=== PATIENT | female | born 1955 | race Caucasian/White ===

== ENCOUNTER 2017-01-21 12:42 | Emergency (ER) | payer MEDICAID ==
[~2017-01-21] VITALS: Ht 154.9 cm; Wt 56.0 kg
[~2017-01-21 12:42] MED LIST: AMOXICILLIN
[2017-01-21] MEDS ORDERED: KETOROLAC 60MG/2ML VIAL IM ONE (13:30)
[2017-01-21] MEDS ORDERED: MORPHINE SULFATE 10 MG/ML CPJ IM ONE (13:30)
[2017-01-21 14:21] LABS: CLARITY URINE CLEAR (CLEAR); COLOR URINE YELLOW (YELLOW); GLUCOSE URINE NEGATIVE (NEGATIVE); KETONES URINE NEGATIVE (NEGATIVE); LEUKOCYTE ESTERASE URINE NEGATIVE (NEGATIVE); NITRITE URINE NEGATIVE (NEGATIVE); OCCULT BLOOD URINE 2+ (NEGATIVE); PROTEIN URINE NEGATIVE (NEGATIVE); SPECIFIC GRAVITY URINE 1.031 (1.005-1.030)
[2017-01-21 16:51] VITALS: BP 105/56
== END 2017-01-21 16:57 | disposition home or self-care (01) ==
LOC: ER 13:48
DX: G89.29 Other chronic pain (principal); M54.89 Other dorsalgia; H92.02 Otalgia, left ear; M19.90 Unspecified osteoarthritis, unspecified site
CPT/HCPCS: 72100; 74176; 81001; 96372; 99285; J1885; J2270; Z7610

== ENCOUNTER 2020-01-21 15:34 | Emergency (ER) | payer MEDICAID ==
[~2020-01-21] VITALS: Ht 154.9 cm; Wt 54.0 kg
[2020-01-21 16:43] LABS: BASOPHILS % 0.7 % (0.0-2.0); CHLORIDE 107 mEq/L (98-107); EOSINOPHILS % 0.7 % (0.0-5.0); HEMATOCRIT. 37.9 % (36.0-48.0); HEMOGLOBIN. 12.7 g/dL (12.0-16.0); LYMPHOCYTES % 30.2 % (20.0-50.0); MEAN CORPUSCULAR HEMOGLOBIN 29.6 pg (28.0-32.0); MEAN CORPUSCULAR VOLUME 88.2 fL (81.0-99.0); MEAN PLATELET VOLUME 9.2 fl (7.4-10.4); MONOCYTES % 4.8 % (2.0-8.0); NEUTROPHILS % 63.6 % (40.0-76.0); PLATELET 234 x1000/uL (130-400); RED CELL DISTRIBUTION WIDTH 14.3 % (11.6-14.6)
[2020-01-21] MEDS ORDERED: KETOROLAC 30MG/ML VIAL IM ONE (18:15)
[2020-01-21] MEDS ORDERED: DEXAMETHASONE 4MG TABLET PO ONE (18:15)
[2020-01-21] MEDS ORDERED: ACETAMINOPHEN 325MG TABLET PO ONE (18:15)
[2020-01-21] MEDS ORDERED: METHOCARBAMOL 500MG TABLET PO ONE (18:15)
[2020-01-21] MEDS ORDERED: LIDOCAINE 5% PATCH TOP SCH (18:30)
[2020-01-21] MEDS ORDERED: VANCOMYCIN 1 G PREMIX 200 ML IV SCH (19:45)
[2020-01-21] MEDS ORDERED: TETANUS, DIPHTHERIA, PERTUSSIS VAC/PF 0.5ML (>7YR OLD) IM ONE (19:45)
[2020-01-21] MEDS ORDERED: CLINDAMYCIN 600 MG in DEXTROSE 5% WATER 50 ML IV ONE (21:00)
[2020-01-21] MEDS: CLINDAMYCIN 600MG PREMIX 50 ML IV SCH ×2 (21:31→21:46)
[2020-01-22 07:40] VITALS: BP 124/76
[2020-01-22] MEDS ORDERED: CLINDAMYCIN 600 MG in DEXTROSE 5% WATER 50 ML IV SCH (09:00)
== END 2020-01-22 08:45 | disposition home or self-care (01) ==
LOC: ER 15:34
DX: S60.945A Unspecified superficial injury of left ring finger, initial encounter (principal); I96 Gangrene, not elsewhere classified; R07.89 Other chest pain; M54.2 Cervicalgia; M79.10 Myalgia, unspecified site; I10 Essential (primary) hypertension; Z98.890 Other specified postprocedural states; X58.XXXA Exposure to other specified factors, initial encounter; Y93.89 Activity, other specified; Y92.89 Other specified places as the place of occurrence of the external cause; Y99.8 Other external cause status
CPT/HCPCS: 36415; 71045; 72125; 73120; 80053; 83880; 84484; 85025; 86140; 87040; 90471; 90715; 93005; 96365; 96372; 99285; J1885; J3490; J8540; J7060

== ENCOUNTER 2021-01-20 06:22 | Emergency (ER) | payer MEDICAID, OTHER ==
[~2021-01-20] VITALS: Ht 157.5 cm; Wt 57.0 kg
[2021-01-20] MEDS ORDERED: KETOROLAC 60MG/2ML VIAL IM ONE (07:15)
[2021-01-20] MEDS ORDERED: IBUP-2029 MT (08:32)
[2021-01-20] MEDS ORDERED: CYCL10TA7 MT (08:32)
[2021-01-20 08:50] VITALS: BP 144/78
== END 2021-01-20 08:52 | disposition home or self-care (01) ==
LOC: ER 06:27
DX: M54.40 Lumbago with sciatica, unspecified side (principal); Z96.659 Presence of unspecified artificial knee joint; Z98.890 Other specified postprocedural states
CPT/HCPCS: 93971; 96372; 99284; J1885

== ENCOUNTER 2023-02-22 10:32 | Emergency (ER) | payer MEDICARE, OTHER ==
[~2023-02-22] VITALS: Ht 162.6 cm; Wt 59.0 kg
[~2023-02-22 10:32] MED LIST changes: +CYCL10TA21 MT; +IBUP-2029 MT
[2023-02-22 10:38] VITALS: BP 135/57; PULSE 73; RESP 18; TEMP 97.8; O2SAT 100
[2023-02-22 12:28] LABS: BASOPHILS % 0.6 % (0.0-2.0); EOSINOPHILS % 0.7 % (0.0-5.0); HEMATOCRIT. 37.2 % (36.0-48.0); HEMOGLOBIN. 13.3 g/dL (12.0-16.0); MEAN CORPUSCULAR HEMOGLOBIN 31.5 pg (28.0-32.0); MEAN CORPUSCULAR HGB CONC 35.8 g/dL (31.0-37.0); MEAN CORPUSCULAR VOLUME 87.9 fL (81.0-99.0); MEAN PLATELET VOLUME 9.3 fl (7.4-10.4); MONOCYTES % 5.2 % (2.0-8.0); NEUTROPHILS % 68.5 % (40.0-76.0); PLATELET 199 x1000/uL (130-400); RED BLOOD CELL COUNT 4.23 mill/uL (4.2-5.4); RED CELL DISTRIBUTION WIDTH 13.8 % (11.6-14.6); WHITE BLOOD COUNT 6.2 x1000/uL (4.5-11.0)
[2023-02-22 12:51] LABS: ALANINE AMINOTRANSFERASE 16 IU/L (10-49); ALBUMIN 4.5 g/dL (3.2-4.8); ASPARTATE AMINOTRANSFERASE 19 IU/L (<34); BILIRUBIN TOTAL 1.2 mg/dL (0.1-1.0); CALCIUM 9.6 mg/dL (8.7-10.4); CARBON DIOXIDE 32 mEq/L (21-32); CHLORIDE 106 mEq/L (98-107); CREATININE 0.7 mg/dL (0.6-1.0); GLUCOSE 106 mg/dL (70-105); POTASSIUM 3.8 mEq/L (3.5-5.1); PROTEIN TOTAL 7.2 g/dL (6.0-8.3); SODIUM 141 mEq/L (136-145); UREA NITROGEN BLOOD 14 mg/dL (9-23)
[2023-02-22] MEDS ORDERED: KETOROLAC 60MG/2ML VIAL IM ONE (13:15)
[2023-02-22 13:17] LABS: CLARITY URINE CLOUDY (CLEAR); COLOR URINE YELLOW (YELLOW); GLUCOSE URINE NEGATIVE (NEGATIVE); KETONES URINE NEGATIVE (NEGATIVE); LEUKOCYTE ESTERASE URINE NEGATIVE (NEGATIVE); NITRITE URINE NEGATIVE (NEGATIVE); OCCULT BLOOD URINE TRACE (NEGATIVE); PH URINE 8.5 (4.5-8.0); PROTEIN URINE NEGATIVE (NEGATIVE); SPECIFIC GRAVITY URINE 1.006 (1.005-1.030); UROBILINOGEN URINE 0.2 E.U./dL (0.2-1.0)
[2023-02-22 13:32] LABS: BACTERIA URINE FEW; SQUAMOUS EPITHELIAL CELL URINE 1+ /lpf (RARE/1+); WBC URINE 0-2 /hpf (0-2); YEAST URINE NONE SEEN
[2023-02-22] MEDS ORDERED: IBUP-2029 MT (15:40)
== END 2023-02-22 17:25 | disposition home or self-care (01) ==
LOC: ER 10:32
DX: R10.9 Unspecified abdominal pain (principal)
CPT/HCPCS: 99285; 74176; 80053; 81003; 81025; 83690; 85025; 36415; 96372; J1885